=== PATIENT | female | born 1990 | race Caucasian/White ===

== ENCOUNTER 2024-08-10 17:48 | Emergency (ER) | payer OTHER ==
[~2024-08-10] VITALS: Ht 172.7 cm; Wt 63.5 kg
[2024-08-10 19:27] LABS: CALCIUM 9.5 mg/dL (8.5-10.1); CREATININE 0.7 mg/dL (0.6-1.3); POTASSIUM 3.7 mmol/L (3.5-5.1)
[2024-08-10 19:33] LABS: ALBUMIN 3.2 g/dL (3.4-5.0); BILIRUBIN,TOTAL 0.4 mg/dL (0.2-1.0); TOTAL PROTEIN, SERUM 7.5 g/dL (6.4-8.2)
[2024-08-10 19:34] LABS: BASOPHILS % (AUTO) 0.5 % (0.0-2.0); EOSINOPHILS # (AUTO) 0.1 K/uL (0.0-0.7); EOSINOPHILS % (AUTO) 1.4 % (0.0-7.0); HEMATOCRIT 36.6 % (31.2-41.9); HEMOGLOBIN 12.2 g/dL (10.9-14.3); LYMPHOCYTES # (AUTO) 1.3 K/uL (0.8-4.8); LYMPHOCYTES % (AUTO) 18.6 % (20.5-51.5); MEAN CORPUSCULAR HEMOGLOBIN 27.9 uug (24.7-32.8); MEAN CORPUSCULAR HGB CONC 33 g/dL (32.3-35.6); MEAN CORPUSCULAR VOLUME 83.7 fL (75.5-95.3); MONOCYTES # (AUTO) 0.6 K/uL (0.1-1.30); MONOCYTES % (AUTO) 9.5 % (0.0-11.0); NEUTROPHILS # (AUTO) 4.8 K/uL (1.8-8.9); PLATELET COUNT (AUTO) 352 K/uL (179-408); RED BLOOD CELL COUNT(AUTO) 4.38 MIL/uL (3.63-4.92); RED CELL DISTRIBUTION WIDTH 13.8 % (12.3-17.7); WHITE BLOOD COUNT (AUTO) 6.9 K/uL (3.8-11.8)
[2024-08-10 19:36] LABS: DIFFERENTIAL COMMENT 1
[2024-08-10 19:40] LABS: *BILIRUBIN,URIN NEGATIVE (NEGATIVE); *BLOOD, URINE NEGATIVE (NEGATIVE); *CLARITY,URINE CLEAR (CLEAR); *COLOR,URINE LIGHT YELLOW (YELLOW); *KETONES,URINE NEGATIVE (NEGATIVE); *PROTEIN,URINE NEGATIVE (NEGATIVE); *UROBILINOGEN,URINE 0.2 E.U./dl (NORMAL); LEUKOCYTE ESTERASE ,URINE 2+ (NEGATIVE); NITRITE, URINE NEGATIVE (NEGATIVE); UGLUCOSE NEGATIVE (NEGATIVE)
[2024-08-10 19:43] LABS: *URINE HCG, QUAL NEGATIVE (NEGATIVE)
[2024-08-10 19:54] LABS: BACTERIA,URINE FEW /HPF (NONE SEEN); RBC,URINE 0-3 /HPF (0-3); SQUAMOUS EPITHELIAL CELL,UR MODERATE /HPF (NONE SEEN)
[2024-08-10] MEDS ORDERED: FLUT16SP BNOSTRILS (20:24)
[2024-08-10] MEDS ORDERED: AZIT250T13 PO (20:24)
[2024-08-10 20:39] VITALS: BP 130/97; O2SAT 99
== END 2024-08-10 20:39 | disposition home or self-care (01) ==
LOC: ER 17:48
DX: M54.6 Pain in thoracic spine (principal); J18.9 Pneumonia, unspecified organism
CPT/HCPCS: 36415; 71045; 83690; 84703; 85025; 87086; A4606; A4663